=== PATIENT | female | born 2000 | race Caucasian/White ===

== ENCOUNTER 2021-08-24 09:11 | Emergency (ER) | payer OTHER ==
[2021-08-24 10:50] LABS: HEMOGLOBIN 12.8 gm/dl (12.3-15.3); RED BLOOD COUNT 4.38 M/UL (4.00-5.10); WHITE BLOOD COUNT 7.7 K/UL (4.5-11.0)
[2021-08-24 11:15] LABS: BUN/CREATININE RATIO 15 (0-10)
[2021-08-24] MEDS ORDERED: ZOFRAN 4 MG TAB4 MG PO (12:20)
[2021-08-24] MEDS ORDERED: BENTYL 20MG TAB20 MG PO (12:20)
== END 2021-08-24 13:41 | disposition home or self-care (01) ==
LOC: ER1 09:11
PROVIDERS: Physician Assistant
DX: R11.2 Nausea with vomiting, unspecified (principal); R19.7 Diarrhea, unspecified; Z20.822 Contact with and (suspected) exposure to COVID-19
CPT/HCPCS: 80053; 81001; 82150; 83690; 84703; 85025; 93005; 96374; 99284; J2405; U0002